=== PATIENT | female | born 1955 | race Caucasian/White ===

== ENCOUNTER 2023-10-12 07:40 | Emergency (ER) | payer BC, SELFPAY ==
[2023-10-12 07:42] VITALS: BP 159/103
--- NOTE | 2023-10-12 08:50 | ED.GENMED ---
History of Present Illness
General
Chief Complaint: Musculo-Skeletal Complaint
Source: patient
Time Seen by Provider: 10/12/23 08:16
Travel History
Have you had any contact with someone who has COVID-19?: No
Do you have any symptoms of coronavirus? Fever > 100 degrees, chills, cough, shortness of breath, sore throat, loss of taste or smell, muscle aches, or headache?: No
History of Present Illness
History of Present Illness:
68-year-old female with past medical history of hypertension presented emergency department for evaluation of right ankle injury that she sustained when accidentally missed a step and now complaining of pain along the right lateral aspect of the
distal ankle. Patient states she was still able to ambulate following the injury but notes discomfort/pain while doing so. Denies any previous history of injury or surgery to the affected ankle. She did not take anything for pain prior to
arrival. No other injuries were sustained.
Past History
Past History
ED Past Medical History: HTN and Hypercholesterolemia
ED Past Surgical History: Gynecological (Total hysterectomy) and Orthopedic (Right total knee replacement)
Social History
Tobacco: Former smoker
Alcohol: None
Drug: None
Personal:
Living: with family
Review of Systems
Review of Systems
All Other Systems: ROS reviewed and negative except as documented in HPI and ROS
Phy Exam
Physical Exam
Physical Exam:
GENERAL: Alert , in no apparent distress
EYE: conjunctiva clear
Head: Normocephalic atraumatic
NECK: Supple,
ENT: mmm.
LUNGS: no acute respiratory distress
NEUROLOGICAL: Alert and oriented
SKIN: Warm and dry, skin intact.
MUSCULOSKELETAL: Right lower extremity: Mild soft tissue swelling around the lateral malleolus. No breaks in the skin, erythema, ecchymosis, abrasions or lacerations. Patient is able to plantar and dorsiflex but does have pain with range of
motion. There is tenderness over the distal fibula proximal to the lateral malleolus. No tenderness at the base of the fifth metatarsal. No calcaneal laxity or deformity. Easily palpable pedal and tibial pulse. Less than 2 seconds. Sensation
grossly intact light touch.
PSYCH: Normal and appropriate interaction.
Scores
Heart Failure Risk
Heart Failure Risk Score: Not Applicable
Heart Score for Chest Pain Patients
STEMI patient?: Not applicable
Withdrawal Assessment of Alcohol
Withdrawal Assessment Completed?: Not applicable
Course
Orders/Labs/Results
Orders:
Orders
10/12/23 07:55
Ankle, Right 3 view CR [CR Ankle - Right Min 3 Views *] Urgent
Comment: right
Reason For Exam: tripped down one step. high ankle pain
10/12/23 08:49
Ortho Boot Right- Treatment ONCE
Short or tall?: Tall
Vital Signs
Initial and Last Documented VS:
Initial Vital Signs
Temp Pulse Resp BP Pulse Ox
98.7 F 72 20 159/103 95
10/12/23 07:42 10/12/23 07:42 10/12/23 07:42 10/12/23 07:42 10/12/23 07:42
Last Documented Vital Signs
Temp Pulse Resp BP Pulse Ox
98.7 F 72 20 159/103 95
10/12/23 07:42 10/12/23 07:42 10/12/23 07:42 10/12/23 07:42 10/12/23 07:42
MDM/Problems Addressed
Differential Diagnosis Includes:
Sprain, fracture, contusion
MDM/Problems Addressed:
68-year-old female presenting emergency department for evaluation of right lateral ankle pain after she accidentally missed a step while ambulating. X-ray was ordered from triage and shows a suspected nondisplaced distal fibular fracture. Patient
to be fitted for a orthopedic boot. Discussed management of fibula fx with patient and will have her follow up with orthopedics. NSAIDS/Tylenol PRN for pain. RICE recommendations discussed. Stable for d/c home
*Radiology
Radiology exam reviewed: preliminary read by ED provider (Nondisplaced distal fibula fracture)
*Pulse Oximetry
Patient hypoxic: no
*Critical Care Note
Total Time (30-74mins, 75-104mins- exclusive of procedures): Not Applicable
ED Attending Note
-
Portions of this chart may have been created with voice recognition software.� Occasional wrong word or��sound alike� substitutions may have occurred due to the inherent limitations of voice recognition software.
Discharge Plan
Departure
Patient Disposition: Home (Routine Discharge)
Date of Disposition: 10/12/23
Time of Disposition: 08:50
Patient with high blood pressure during this ER visit?: Yes
Discharge Problem:
Closed fracture of distal end of right fibula
Instructions: Ankle Fracture (DC)
Prescriptions:
No Action
atorvastatin 10 MG tablet
10 mg PO QPM
aspirin 81 MG tablet,delayed release (DR/EC)
81 mg PO DAILY
olmesartan 20 MG tablet
20 mg PO DAILY
Magnesium
1 tab PO DAILY
Referrals:
Endy Plaza MD [Active] -
Interventions
Interventions:
*ED COVID-19 Vaccine History Last Done: 10/12/23 07:54
ED-Musculoskeletal Assessment Last Done: 10/12/23 08:30
[2023-10-12 09:15] VITALS: BP 182/89
== END 2023-10-12 09:15 | disposition home or self-care (01) ==
LOC: EMR 07:40
PROVIDERS: EMERGENCY PHYSICIAN Emergency Medicine; FAMILY PHYSICIAN Family Medicine
DX: S82.831A Other fracture of upper and lower end of right fibula, initial encounter for closed fracture (principal); X50.1XXA Overexertion from prolonged static or awkward postures, initial encounter; I10 Essential (primary) hypertension; Z87.891 Personal history of nicotine dependence
CPT/HCPCS: 99283; 73610

== ENCOUNTER 2024-02-11 13:25 | Emergency (ER) | payer OTHER, SELFPAY ==
[2024-02-11 13:28] VITALS: BP 146/90
[2024-02-11] MEDS: ADACEL 0.5 ML IM (14:32)
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
== END 2024-02-11 15:39 | disposition home or self-care (01) ==
LOC: EMR 13:25
PROVIDERS: EMERGENCY PHYSICIAN Emergency Medicine; FAMILY PHYSICIAN Family Medicine
DX: S62.305A Unspecified fracture of fourth metacarpal bone, left hand, initial encounter for closed fracture (principal); S62.307A Unspecified fracture of fifth metacarpal bone, left hand, initial encounter for closed fracture; S50.312A Abrasion of left elbow, initial encounter; W19.XXXA Unspecified fall, initial encounter; I10 Essential (primary) hypertension; E78.00 Pure hypercholesterolemia, unspecified; Z87.891 Personal history of nicotine dependence; Z90.710 Acquired absence of both cervix and uterus
CPT/HCPCS: 99283; 29125; 90471; 73130; 90715

== ENCOUNTER → 2024-02-13 06:53 | Outpatient (REF) | payer OTHER, SELFPAY ==
[2024-02-13 07:44] LABS: % Basophils 0.6 % (0-2); % Eosinophils 5.1 % (0-6); % Immature Granulocytes 0.4 % (0-0.5); % Lymphocytes 22.3 % (20.5-51.1); % Monocytes 7.7 % (1.7-9.3); % Neutrophils 63.9 % (42.2-75.2); Absolute Basophils 0.1 10^3/uL (0-0.2); Absolute Eosinophils 0.4 10^3/uL (0-0.7); Absolute Lymphocytes 1.9 10^3/uL (1.2-3.4); Absolute Monocytes 0.7 10^3/uL (0.1-0.6); Absolute Neutrophils 5.4 10^3/uL (1.4-6.5); Hematocrit 43.1 % (37.0-47.0); Hemoglobin 14.4 g/dL (12.0-16.0); Mean Corp Hgb Conc. 33.4 g/dL (33.0-37.0); Mean Corpuscular Hgb 30.1 pg (27.0-31.0); Mean Platelet Volume 10.1 fL (7.4-10.4); Nucleated Red Blood Cells % 0 %; Platelet Count 191 10^3/uL (130-400); Red Blood Cell Count 4.79 10^6/uL (4.20-5.40); White Blood Cell Count 8.4 10^3/uL (4.8-10.8)
[2024-02-13 08:26] LABS: Blood Urea Nitrogen 14 mg/dl (7-17); Calcium 9.1 mg/dl (8.4-10.2); Carbon Dioxide 28 mmol/L (22-30); Chloride 105 mmol/L (98-107); Glucose 139 mg/dl (70-99); Potassium 4.7 mmol/L (3.5-5.1); Sodium 139 mmol/L (135-145); eGFR > 60.00
== END ==
LOC: RCS 06:53
PROVIDERS: ATTENDING PHYSICIAN Orthopaedic Surgery Hand Surgery; FAMILY PHYSICIAN Family Medicine
DX: Z01.818 Encounter for other preprocedural examination (principal)
CPT/HCPCS: 36415; 80048; 85025; 93005

== ENCOUNTER → 2024-08-14 14:51 | Outpatient (REF) | payer OTHER, SELFPAY | LOC: WDC 14:51 | PROVIDERS: ATTENDING PHYSICIAN Obstetrics & Gynecology Gynecology; FAMILY PHYSICIAN Family Medicine | DX: Z01.419 Encounter for gynecological examination (general) (routine) without abnormal findings (principal); Z12.31 Encounter for screening mammogram for malignant neoplasm of breast | CPT/HCPCS: 77063; 77067 ==

== ENCOUNTER → 2025-03-11 14:12 | Outpatient (REF) | payer OTHER, SELFPAY ==
[2025-03-11 15:26] LABS: Hematocrit 46.0 % (37.0-47.0); Hemoglobin 15.0 g/dL (12.0-16.0); Mean Corp Hgb Conc. 32.6 g/dL (33.0-37.0); Mean Corpuscular Volume 90.0 fL (81.0-99.0); Nucleated Red Blood Cells % 0 %; Platelet Count 233 10^3/uL (130-400); Red Cell Dist. Width 13.2 % (11.5-14.5)
[2025-03-11 15:49] LABS: C-Reactive Protein < 5.00 mg/L (0.0-10.00)
[2025-03-13 15:31] LABS: Lyme Antibody Screen, EIA Negative (Negative)
== END ==
LOC: REG 14:12
PROVIDERS: ATTENDING PHYSICIAN Physician Assistant Surgical; FAMILY PHYSICIAN Family Medicine
DX: M25.561 Pain in right knee (principal)
CPT/HCPCS: 36415; 85025; 85652; 86140; 86618